=== PATIENT | female | born 1960 | race Caucasian/White ===

== ENCOUNTER 2018-04-12 13:07 | Emergency (ER) | payer OTHER ==
[2018-04-12] MEDS: IBUPROFEN 600 MG TAB PO (14:16)
== END 2018-04-12 14:45 | disposition home or self-care (01) ==
LOC: FTE 13:07
DX: M54.41 Lumbago with sciatica, right side (principal); I10 Essential (primary) hypertension; F17.210 Nicotine dependence, cigarettes, uncomplicated; M85.861 Other specified disorders of bone density and structure, right lower leg
CPT/HCPCS: 72100; 73510; 99284-25

== ENCOUNTER 2019-04-25 22:45 | Emergency (ER) | payer SELFPAY, OTHER | END 2019-04-26 03:05 | disposition left against medical advice (07) | LOC: E/R 22:45 | DX: Z53.21 Procedure and treatment not carried out due to patient leaving prior to being seen by health care provider (principal) ==